=== PATIENT | female | born 1940 | race Caucasian/White ===

== ENCOUNTER 2017-06-29 13:48 | Inpatient (IN) | payer MEDICARE ==
--- NOTE | 2017-06-29 15:14 | RAD ---
CHEST 1 VIEW: Date: 06/29/17 HISTORY: Emergency exam. COMPARISON: None. FINDINGS: Lungs are clear. No pneumothorax or effusion. Cardiac silhouette and mediastinal contours within norm al limits. IMPRESSION: No acute intrathoracic abnormality. POS: [facility]
[2017-06-29 15:45] LABS: Bacteria/HPF None Seen HPF (None Seen); Bilirubin Negative (Negative); Blood, Urine Trace (Negative); Clarity CLEAR (Clear); Glucose, Urine (Dipstick) Negative (Negative); Hyaline Casts/LPF 4-6 HYALINE CAST LPF (0-3 Hyaline); Leukocyte Small (Negative); Nitrite Negative (Negative); Pathc Cast-AUWi Flag 1.21 (0-2.49); Protein, Urine (Dipstick) 100 mg/dL (Neg-Trace); Specific Gravity, Urine 1.025 (1.002-1.036); Squamous Epithelial None Seen HPF (0-3); Urobilinogen 0.2 mg/dL (0.2-1.0); pH, Urine 5.5 (5.0-9.0)
[2017-06-29 15:46] LABS: #Basophils 0.1 thou/uL (0.0-0.2); #Lymphocytes 1.8 thou/uL (1.20-3.40); #Monocytes 0.6 thou/uL (0.11-0.59); #Neutrophils 6.8 thou/uL (1.40-6.50); %Basophils 0.7 % (0.0-1.0); %Eosinophils 0.5 % (0.0-10.0); %Lymphocytes 19.2 % (21.0-51.0); %Monocytes 6.6 % (0.0-10.0); Hemoglobin 14.3 g/dL (12.0-16.0); Mean Corpuscular HGB CONC 34.2 g/dL (32.0-36.0); Mean Corpuscular Hemoglobin 31.7 pg (27.0-31.0); Mean Corpuscular Volume 92.5 fl (81.0-99.0); Platelet Count 206 thou/uL (130-400); RBC Distribution Width 12.6 % (11.5-14.5); Red Blood Cell (RBC) Count 4.52 mill/uL (4.20-5.40); White Blood Cell (WBC) Count 9.3 thou/uL (4.8-10.8)
[2017-06-29 15:51] LABS: Prothrombin Time 13.1 SEC (12.0-14.7)
[2017-06-29 16:07] LABS: ALT (SGPT) 27 U/L (8-55); AST (SGOT) 21 U/L (5-34); Albumin 4.3 g/dL (3.4-4.8); Alkaline Phosphatase 53 U/L (40-150); Anion Gap 15 mmol/L (10-20); BUN (Urea Nitrogen) 20 mg/dL (9.8-20.1); Bilirubin, Total 0.6 mg/dL (0.2-1.2); CK (CPK) 80 U/L (29-168); Calc. Creatinine Clearance 0 mL/min (70-130); Carbon Dioxide 23 mmol/L (23-31); Chloride 107 mmol/L (98-107); Estimated GFR-MDRD 58; Globulin 3.3 g/dL (2.4-3.5); Glucose 115 mg/dL (83-110); Magnesium 1.8 mg/dL (1.6-2.6); Protein, Total 7.6 g/dL (6.0-8.3); Sodium 141 mmol/L (136-145)
[2017-06-29 16:12] LABS: CKMB 1.3 ng/mL (0-6.6); Troponin I 0.036 ng/mL (< 0.028)
--- NOTE | 2017-06-29 16:34 | CT ---
CT BRAIN WITHOUT CONTRAST: Date: 06/29/17 HISTORY: Altered mental status. COMPARISON: None. FINDINGS: Moderate periventricular and deep white matter microvascular ischemic changes. Complete opacification left sphenoid sinus and right maxillary sinus with osteitis. No acute territorial infarct or hemorrhage. No midline shift or mass effect. Calvarium is intact. Orb its are unremarkable. IMPRESSION: 1. No acute intracranial abnormality. 2. Severe right maxillary and left sphenoid sinusitis. POS: [facility]
[2017-06-29] MEDS ORDERED: Amoxicillin/Potassium Clav 250 MG TAB ONE (17:10)
[2017-06-29 20:15] LABS: Troponin I 0.039 ng/mL (< 0.028)
[2017-06-29] MEDS ORDERED: Dextrose 5% in Water 1,000 ML IV PRN (21:32)
[2017-06-29] MEDS ORDERED: HumaLOG 300 UNITS/3 ML VIAL SC PRN ×2 (21:32)
[2017-06-29] MEDS ORDERED: Dextrose 50% Abboject 50 ML SYRINGE SLOW IVP PRN (21:32)
[2017-06-29] MEDS ORDERED: metFORMIN 500 MG TAB PO SCH (22:00)
[2017-06-29] MEDS ORDERED: traZODone HCl 50 MG TAB PO SCH (22:00)
[2017-06-29] MEDS ORDERED: Lisinopril 20 MG TAB PO SCH (22:00)
[2017-06-29] MEDS ORDERED: PARoxetine 20 MG TAB PO SCH (22:00)
[2017-06-29] MEDS ORDERED: Loratadine 10 MG TAB PO SCH (22:00)
[2017-06-29] MEDS ORDERED: Atorvastatin Calcium 40 MG TAB PO SCH (22:00)
[2017-06-29] MEDS ORDERED: Propranolol HCl LA 60 MG CAP PO SCH (22:00)
[2017-06-29] MEDS ORDERED: Fenofibrate Nanocrystallized 145 MG TAB PO SCH (22:00)
[2017-06-29 22:08] LABS: Troponin I 0.043 ng/mL (< 0.028)
[2017-06-29 22:45] VITALS: BMI 18.6
[2017-06-29] MEDS: Sodium Chloride 0.9% 1,000 ML IV SCH (22:46)
--- NOTE | 2017-06-30 00:35 | HP-2 ---
DATE OF ADMISSION: 06/29/2017 CODE STATUS: FULL. PRIMARY CARE PHYSICIAN: Dr. Bueno. ATTENDING: Dr. Jayde Webb. RESIDENT: Dr. Carito Walker. HISTORIAN: Patient. CHIEF COMPLAINT: Flu-like symptoms, altered mentation, generalized weakness, chest pain. HISTORY OF PRESENT ILLNESS: This is a 77-year-old female who presents with a several week history of flu-like symptoms. She was treated for the flu on 06/17 with Tamiflu. She reports that since that time she has still had continued symptoms of nausea, vomiting, diarrhea as well as body aches. She had an episode of intermittent transient chest pain in the ER, that felt like pressure. She has not ever had a stress test or been diagnosed with CAD. Her daughter also reports that over the past 2 months, she has had worsening confusion, personality changes and altered mentation in addition to overall generalized weakness and deconditioning that was worsened by her flu-like illness. In the ER, she received aspirin 324 mg, Augmentin 500 mg. PAST MEDICAL HISTORY: 1. Hypertension. 2. Depression. 3. Hyperlipidemia. 4. Diabetes mellitus type 2. 5. Tobacco abuse. 6. Vitamin D deficiency. PAST SURGICAL HISTORY: 1. Tonsillectomy. 2. Hysterectomy. 3. Laminectomy. ALLERGIES: CIPROFLOXACIN. MEDICATIONS: 1. Metformin 500 mg extended release. 2. Vitamin D 2000 IU. 3. Loratadine 10 mg daily. 4. Fenofibrate 145 mg. 5. Paroxetine 10 mg daily. 6. Propranolol extended release 120 mg daily. 7. Atorvastatin 40 mg daily. 8. Lisinopril 20 mg daily. 9. Trazodone 50 mg at night. FAMILY HISTORY: Noncontributory. SOCIAL HISTORY: History of smoking. Denies alcohol or drug use. REVIEW OF SYSTEMS: General: Denies fevers, chills. HEENT: Endorses nasal congestion. Respiratory: Denies cough. Endorses congestion. Cardiovascular: Endorses chest pressure. Denies palpitations or edema. GI: Endorses nausea , vomiting, and diarrhea. Genitourinary: Denies incontinence, dysuria. Musculoskeletal: Denies pain or tenderness. Neurologic: Denies weakness, numbness. Psychiatric: Denies anxiety, depression. Skin: Denies rashes or lesions. PHYSICAL EXAMINATION: VITAL SIGNS: Blood pressure 157-185/61-87, pulse 60 to 65, respiratory rate 16 to 18, T-max 98.7, pulse ox 97% on room air, current weight 50 kilograms. GENERAL: Alert and oriented x2(person and place), no apparent distress. Well- nourished, thin, somewhat appropriately interactive. HEENT: PERRLA, EOMI. Nasal mucosa and oropharynx within normal limits. NECK: Supple, no lymphadenopathy, no thyromegaly. CARDIOVASCULAR: Regular rate and rhythm. No murmurs, rubs, or gallops, 2+ pedal pulses. RESPIRATORY: Normal effort, no retractions, clear to auscultation bilaterally. SKIN: Warm and dry. ABDOMEN: Soft, nontender to palpation. Bowel sounds in all 4 quadrants. No mass or distention. EXTREMITIES: No clubbing, cyanosis, or edema. MUSCULOSKELETAL: Structure within normal limits, although thin, decreased tone. Strength 4/5 in upper and lower extremities. Global weakness. NEUROLOGIC: No focal deficits. Cranial nerves II-XII intact. GCS 15. PSYCHIATRIC: Appropriate. LABORATORY DATA: CBC: 9.3, 14.3, 41.8, 208. CMP: 141, 4.0, 107, 20.94, 115. AST, ALT, alkaline phosphatase 21, 27, 53. Magnesium 1.8, PT 13.1, INR 1. Calcium, total protein, albumin, 10, 7.6, 4.3. Total bilirubin 0.6. CK-MB 1.3. Troponin 0.036. TSH 2.96. UA positive for protein 100, leukocyte esterase small, white blood cells 4-6, red blood cells 4-6, otherwise negative. EKG: Normal sinus rhythm. IMAGING: CT head negative for acute intracranial bleed or process. ASSESSMENT AND PLAN: This is a 77-year-old female with a recent flu-like illness, admitted for encephalopathy, deconditioning, and indeterminate troponins. 1. Encephalopathy, not otherwise specialized. CT of the head showed no acute intracranial bleed. We will order an MRI to rule out a mass or lesion. This may be a new onset of dementia such as Pick's disease like picture. 2. Deconditioning. This is likely due to her recent flu-like illness. We will order PT, OT for evaluation and also place the patient on maintenance fluids of normal saline at 90 mL per hour. 3. Indeterminate trops, patient when we saw the patient, she was not complaining of any chest pain or pressure. There was some history of transient chest pain upon initial evaluation, and so we will trend her troponins. Chest pain picture is atypical. She had a heart score. However, she had a heart score of 5 and because of her age and past medical history, we will order a pharmacological stress test in the morning and make the patient n.p.o. at midnight. DISPOSITION LENGTH OF HOSPITAL STAY: 2 days. Symptomatic medication will be provided. History and physical exam as well as management discussed with Dr. Tracey Guerrero. BETY
[2017-06-30 01:07] LABS: Troponin I 0.038 ng/mL (< 0.028)
[2017-06-30 05:15] LABS: Hemoglobin A1c 7.2 % (4.0-6.0)
[2017-06-30 05:26] LABS: Anion Gap 12 mmol/L (10-20); BUN (Urea Nitrogen) 19 mg/dL (9.8-20.1); Calc. Creatinine Clearance 42 mL/min (70-130); Calcium 9.6 mg/dL (7.8-10.44); Carbon Dioxide 25 mmol/L (23-31); Cardiac Risk 4.9 (Less than 4.5); Chloride 108 mmol/L (98-107); Cholesterol 158 mg/dl (< 200 Desired); Estimated GFR-MDRD 62; Glucose 132 mg/dL (83-110); HDL Cholesterol 32 mg/dL (>60 Neg Risk); LDL Cholesterol, Calculated 69 mg/dL; Potassium 3.6 mmol/L (3.5-5.1); Sodium 141 mmol/L (136-145); Triglycerides 283 mg/dL (Less than 150)
[2017-06-30 06:00] LABS: Band 1 % (5-11); Eosinophils 4 % (0-10); Hemoglobin 12.8 g/dL (12.0-16.0); Lymphocytes 16 % (21-51); MDiff Complete? YES; Mean Corpuscular HGB CONC 34.1 g/dL (32.0-36.0); Mean Corpuscular Hemoglobin 31.6 pg (27.0-31.0); Mean Corpuscular Volume 92.6 fl (81.0-99.0); Mean Platelet Volume 8.4 fL (7.4-10.4); Monocytes 3 % (0-10); Neutrophil 76 % (42-75); PLT Morphology Comment Appears Adequate; Platelet Count 174 thou/uL (130-400); RBC Distribution Width 12.5 % (11.5-14.5); RBC Morphology Normal; Red Blood Cell (RBC) Count 4.05 mill/uL (4.20-5.40); White Blood Cell (WBC) Count 7.8 thou/uL (4.8-10.8)
--- NOTE | 2017-06-30 08:24 | PDOC.FM ---
- Subjective Subjective: Patient alert and awake this AM. She was alert and oriented to person and place , but not to time. She states that she lives at home alone and is able to perform ADL's without any assistance. Patient actually lives at home with . She has poor insight into current illness and memory loss. Patient was very pleasant this AM and was agreeable to an MRI and stress test after it was carefully explained. - Objective MAR Reviewed: Yes Vital Signs & Weight: Vital Signs (12 hours) Temp Pulse Resp BP Pulse Ox 06/30/17 07:20 97.9 F 56 L 18 06/30/17 04:00 97.9 F 56 L 18 169/67 H 94 L 06/30/17 00:08 98.5 F 66 15 06/29/17 23:37 98.5 F 66 15 142/70 H 94 L 06/29/17 21:24 95 I&O: 06/29/17 06/30/17 07/01/17 06:59 06:59 06:59 Intake Total 629 242 Balance 629 242 Result Diagrams: 06/30/17 04:28 06/30/17 04:28 EKG Reviewed by me: Yes Radiology Reviewed by me: Yes <Saritha Gorman - Last Filed: 06/30/17 08:22> - Objective Vital Signs & Weight: Vital Signs (12 hours) Temp Pulse Resp BP Pulse Ox 06/30/17 11:13 95 06/30/17 07:32 97.4 F L 54 L 18 165/73 H 95 06/30/17 07:20 97.9 F 56 L 18 06/30/17 04:00 97.9 F 56 L 18 169/67 H 94 L Weight Admit Weight 50.848 kg Weight 50.848 kg I&O: 06/29/17 06/30/17 07/01/17 06:59 06:59 06:59 Intake Total 629 242 Balance 629 242 Result Diagrams: 06/30/17 04:28 06/30/17 04:28 <José Miguel Julian - Last Filed: 06/30/17 12:21> Phys Exam - Physical Examination Constitutional: NAD HEENT: PERRLA, moist MMs Neck: supple Respiratory: no wheezing, no rales, no rhonchi, clear to auscultation bilateral Cardiovascular: RRR, no significant murmur Gastrointestinal: soft, non-tender, no distention, positive bowel sounds Musculoskeletal: no edema Neurological: non-focal, moves all 4 limbs Deviation from normal: Alert and oriented to person and place Skin: no rash <Saritha Gorman - Last Filed: 06/30/17 08:22> Dx/Plan (1) Encephalopathy acute Code(s): G93.40 - ENCEPHALOPATHY, UNSPECIFIED Status: Acute (2) Physical deconditioning Code(s): R53.81 - OTHER MALAISE Status: Acute (3) Elevated troponin Code(s): R74.8 - ABNORMAL LEVELS OF OTHER SERUM ENZYMES Status: Acute (4) Sinusitis Code(s): J32.9 - CHRONIC SINUSITIS, UNSPECIFIED Status: Acute (5) Influenza Code(s): J11.1 - FLU DUE TO UNIDENTIFIED INFLUENZA VIRUS W OTH RESP MANIFEST Status: Resolved (6) Diabetes mellitus type 2 in nonobese Code(s): E11.9 - TYPE 2 DIABETES MELLITUS WITHOUT COMPLICATIONS Status: Chronic (7) HTN (hypertension) Code(s): I10 - ESSENTIAL (PRIMARY) HYPERTENSION Status: Chronic QualifierTitle: Hypertension type: essential hypertension Qualified Code( s): I10 - Essential (primary) hypertension (8) HLD (hyperlipidemia) Code(s): E78.5 - HYPERLIPIDEMIA, UNSPECIFIED Status: Chronic QualifierTitle: Hyperlipidemia type: unspecified Qualified Code(s): E78.5 - Hyperlipidemia, unspecified (9) Tobacco abuse Code(s): Z72.0 - TOBACCO USE Status: Chronic (10) Depression Code(s): F32.9 - MAJOR DEPRESSIVE DISORDER, SINGLE EPISODE, UNSPECIFIED Status : Chronic (11) Anxiety Code(s): F41.9 - ANXIETY DISORDER, UNSPECIFIED Status: Chronic - Plan Plan: 1. Ecephalopathy - Suspect underlying dementia worsened by recent influenza infection - CT brain negative for any acute intracranial abnormalities and only minor chronic changes - MRI of brain pending to rule out mass/lesion - Patient alert and oriented to person and place, but not to time - s/p treatment for influenza - Continue orienting patient 2. Deconditioning - Likely 2/2 to recent influenza illness - Would benefit from placement in SNF 3. Indeterminate troponins - Patient denies CP currently, but ER doc reported she had chest pressure on admission - Stress test pending - ASA 4. Sinusitis - Asymptomatic - Detected on CT of brain - Treatment with Augmentin has been initiated 5. Recent history of influenza - S/p treatment with Tamiflu 6. DM type II - Continue home medications - Accuchecks 7. HTN - Continue home medications 8. HLD - Continue home medications 9. Tobacco abuse - Pathology Laboratory Technologist on cessation - Nicotine patch PRN 10. Depression - Continue home medications <Saritha Gorman - Last Filed: 06/30/17 08:22> Attending Addendum - Attending Addendum I personally evaluated the patient and discussed the management with Dr. Gorman. I agree with the History, Examination, Assessment and Plan documented above with any addition or exceptions noted below. Patient admitted for what sounds more like a chronic change in mentation rather than an acute encephalopathy. She is having MRI this morning to ensure no intracranial disease that would the cause of her symptoms. She also had mention of chest pain in the ER and stress testing has been ordered. She lives at home with family. No cause found for longer term change in mentation, likely dementia. Awaiting results of MRI and stress testing and will then discuss with family possible d/c home with further outpatient workup of her change in mentation. <José Miguel Julian - Last Filed: 06/30/17 12:21>
[2017-06-30] MEDS ORDERED: Lorazepam 2 MG/ML VIAL SLOW IVP SCH (10:45)
[2017-06-30] MEDS: Amoxicillin/Potassium Clav 500 MG TAB PO SCH ×2 (11:01→22:06)
[2017-06-30] MEDS: Lisinopril 20 MG TAB PO SCH ×2 (11:02→21:57)
[2017-06-30] MEDS: Aspirin 81 mg Enteric Coated Tablet PO SCH (11:02)
[2017-06-30] MEDS: Enoxaparin Sodium 40 MG/0.4 ML SYRINGE SC SCH (11:02)
--- NOTE | 2017-06-30 12:26 | NM ---
CARDIAC SILHOUETTE: History A 7-year-old female with chest pain, hypertension, diabetes mellitus, dyslipidemia, and smoker. TECHNIQUE: A myocardial perfusion scan was performed using the single-isotope 1-day protocol with Technetium 99m sestamibi. 11 mCi were injected intravenously for the rest exam followed by 30 mCi for the stress s tudy. Pharmacologic stress with adenosine was monitored and interpreted by Dr. Ba. FINDINGS: Homogeneous tracer distribution is seen in the myocardial segments on stress and rest images without fixed or reversible defects. GATED SPECT LVEF: 81%. WALL MOTION EXAM: Normal. IMPRESSION: Normal myocardial perfusion scan. POS: [facility]
--- NOTE | 2017-06-30 13:38 | MRI ---
BRAIN MRI WITH AND WITHOUT CONTRAST: INDICATIONS: Altered mental status. COMPARISON: Reference made to brain CT from the previous day. FINDINGS: There is a age related cerebral atrophy with compensatory dilatation of the ventricular system. Mode rate chronic microvascular ischemic disease is present within the cerebral white matter and involving the kenia. There is no acute territorial infarction, mass effect, or midline shift. There is a focu s of enhancement along the superior aspect of the right orbit, projecting posteriorly, with a dural b ase, measuring approximately 15 mm transverse x 9 mm AP x 6 mm craniocaudal. A prominent degree of patient motion limits evaluation. Redemonstration of prominent paranasal sinus opacification, which predominantly involves the right maxillary sinus and the left major sphenoid ai r cells. There is a nonspecific punctate focus of restricted diffusion localizing to the left tempor oparietal calvarium. IMPRESSION: 1. No acute intracranial abnormalities. 2. Moderate chronic microvascular ischemic disease. 3. Right supraorbital meningioma. 4. Small area of restricted diffusion involving the left temporoparietal calvarium. This is nonspec ific. This may be further assessed with a dedicated whole body bone scan, in order to exclude a diff use osseous process. POS: [facility]
[2017-06-30] MEDS: Sodium Chloride 0.9% 1,000 ML IV SCH (16:21)
[2017-06-30] MEDS ORDERED: ADENOSINE 60 MG/20 ML VIAL ONE (16:44)
[2017-06-30] MEDS: traZODone HCl 50 MG TAB PO SCH (21:58)
[2017-06-30] MEDS: Fenofibrate Nanocrystallized 145 MG TAB PO SCH (21:59)
[2017-06-30] MEDS: Atorvastatin Calcium 40 MG TAB PO SCH (21:59)
[2017-06-30] MEDS: Loratadine 10 MG TAB PO SCH (21:59)
[2017-06-30] MEDS: PARoxetine 20 MG TAB PO SCH (21:59)
[2017-06-30] MEDS: metFORMIN 500 MG TAB PO SCH (22:01)
[2017-06-30] MEDS: Propranolol HCl LA 60 MG CAP PO SCH (22:05)
--- NOTE | 2017-07-01 00:41 | CON ---
DATE OF CONSULTATION: 06/30/2017 ATTENDING PHYSICIAN: Dr. Jeovanny Loja. HISTORY OF PRESENT ILLNESS: The patient is a 77-year-old female with a past medical history of hypertension, hyperlipidemia, coronary artery disease , type 2 diabetes, depression, dementia, who presented to the emergency department on 06/29/2017 for generalized weakness and flu-like symptoms. She was diagnosed and treated for the flu on 06/17/2017 after she reports, since that time she has continued to have generalized weakness, body aches, nausea, vomiting, and diarrhea. Her family is also concerned about progressive memory decline that she has been having over the past few months and intermittent confusion. She was evaluated with a noncontrast CT of the head, which was negative for any acute changes. MRI of the brain with and without contrast was notable for a small right supraorbital meningioma. I have seen the patient at bedside. She is alert and oriented to person and place, but not to time. She is slightly congenital in her conversation. Her pupils are equal and reactive. Her extraocular movements are intact. She has normal cranial nerve exam. No focal motor weakness appreciated on my exam. PAST MEDICAL HISTORY: Hypertension, hyperlipidemia, type 2 diabetes, depression , dementia. PAST SURGICAL HISTORY: Tonsillectomy, hysterectomy, laminectomy. ALLERGIES: The patient is allergic to CIPROFLOXACIN. FAMILY HISTORY: Noncontributory. SOCIAL HISTORY: Patient is . She lives at home with her . She is a smoker. She denies drug or alcohol use. REVIEW OF SYSTEMS: Per HPI. PHYSICAL EXAMINATION: CONSTITUTIONAL: She is in no acute distress, sitting comfortably in the bed, enjoying her dinner. HEENT: Normocephalic, atraumatic. EYES: PERRLA. Extraocular movements intact. Sclerae are white. ENT: OP is clear. Oral mucosa are pink intact and moist. She has a normal voice. NECK: Nontender to palpation. Free active range of motion, no meningismus or nuchal rigidity. CARDIOVASCULAR: Regular rate and rhythm. LUNGS: Patient is breathing comfortably. She has symmetric chest expansion. No evidence of dyspnea. MUSCULOSKELETAL: She has good muscle tone to bilateral upper and lower extremities, free active range of motion of all extremities, 5/5 strength throughout. NEURO: Patient is alert and oriented to person, place, but not to time. No focal motor weakness is appreciated. She has normal cranial nerve exam. ASSESSMENT: Right orbital lesion consistent with meningioma. PLAN: Meningioma on MRI is unlikely to be contributing to patient's worsening cognitive decline. This is likely an incidental finding. We will be happy to follow with the patient on an outpatient basis. No acute neurosurgical intervention is indicated at this time. Please reach out to Neurosurgery Service for additional questions or concerns. BETY
[2017-07-01] MEDS: Sodium Chloride 0.9% 1,000 ML IV SCH (03:41)
[2017-07-01 05:25] LABS: Anion Gap 13 mmol/L (10-20); BUN (Urea Nitrogen) 19 mg/dL (9.8-20.1); Band 3 % (5-11); Calc. Creatinine Clearance 43 mL/min (70-130); Calcium 8.9 mg/dL (7.8-10.44); Carbon Dioxide 22 mmol/L (23-31); Chloride 108 mmol/L (98-107); Eosinophils 3 % (0-10); Estimated GFR-MDRD 61; Glucose 114 mg/dL (83-110); Hemoglobin 12.5 g/dL (12.0-16.0); Lymphocytes 35 % (21-51); MDiff Complete? YES; Mean Corpuscular HGB CONC 34.7 g/dL (32.0-36.0); Mean Corpuscular Hemoglobin 31.8 pg (27.0-31.0); Mean Corpuscular Volume 91.7 fl (81.0-99.0); Mean Platelet Volume 8.1 fL (7.4-10.4); Monocytes 4 % (0-10); Neutrophil 54 % (42-75); PLT Morphology Comment Appears Adequate; Platelet Count 168 thou/uL (130-400); Potassium 3.8 mmol/L (3.5-5.1); RBC Distribution Width 12.3 % (11.5-14.5); Red Blood Cell (RBC) Count 3.94 mill/uL (4.20-5.40); Sodium 139 mmol/L (136-145); White Blood Cell (WBC) Count 7.5 thou/uL (4.8-10.8)
--- NOTE | 2017-07-01 08:18 | PDOC.FM ---
- Subjective Subjective: Patient doing well this AM. Alert and oriented x2, to person and time, but not to place this AM. She thought she was in [place], [place]. Patient pleasant during encounter today. Nurses did report that she was agitated last night. She was attempted to get up from bed on several occasions without assistance. She was also yelling at the nurses. Eventually, she calmed down. Likely she was sundowning. Will discuss HH with PT with patient's daughter vs. SNF from outpatient setting. - Objective MAR Reviewed: Yes Vital Signs & Weight: Vital Signs (12 hours) Temp Pulse Resp BP BP Pulse Ox 07/01/17 03:42 98.5 F 63 16 159/70 H 92 L 07/01/17 00:00 61 16 156/70 H 06/30/17 21:57 174/74 H Weight Admit Weight 50.848 kg Weight 51.982 kg I&O: 06/30/17 07/01/17 07/02/17 06:59 06:59 06:59 Intake Total 629 1562 Output Total 500 Balance 629 1062 Result Diagrams: 07/01/17 04:44 07/01/17 04:44 EKG Reviewed by me: Yes Radiology Reviewed by me: Yes <Saritha Gorman - Last Filed: 07/01/17 08:20> - Objective Vital Signs & Weight: Vital Signs (12 hours) Temp Pulse Resp BP Pulse Ox 07/01/17 08:00 97.8 F 62 16 07/01/17 07:28 97.8 F 62 16 179/81 H 93 L 07/01/17 03:42 98.5 F 63 16 159/70 H 92 L Weight Admit Weight 50.848 kg Weight 51.982 kg I&O: 06/30/17 07/01/17 07/02/17 06:59 06:59 06:59 Intake Total 629 1562 Output Total 500 250 Balance 629 1062 -250 Result Diagrams: 07/01/17 04:44 07/01/17 04:44 <José Miguel Julian - Last Filed: 07/01/17 12:17> Phys Exam - Physical Examination Constitutional: NAD HEENT: moist MMs Neck: supple Respiratory: no wheezing, no rales, no rhonchi, clear to auscultation bilateral Cardiovascular: RRR Gastrointestinal: soft, no distention Musculoskeletal: no edema Neurological: non-focal, moves all 4 limbs Deviation from normal: Alert and oriented to time and person, but not to place Skin: no rash, cap refill <2 seconds <VitaSaritha - Last Filed: 07/01/17 08:20> Dx/Plan (1) Encephalopathy acute Code(s): G93.40 - ENCEPHALOPATHY, UNSPECIFIED Status: Acute (2) Physical deconditioning Code(s): R53.81 - OTHER MALAISE Status: Acute (3) Elevated troponin Code(s): R74.8 - ABNORMAL LEVELS OF OTHER SERUM ENZYMES Status: Acute (4) Sinusitis Code(s): J32.9 - CHRONIC SINUSITIS, UNSPECIFIED Status: Acute (5) Influenza Code(s): J11.1 - FLU DUE TO UNIDENTIFIED INFLUENZA VIRUS W OTH RESP MANIFEST Status: Resolved (6) Diabetes mellitus type 2 in nonobese Code(s): E11.9 - TYPE 2 DIABETES MELLITUS WITHOUT COMPLICATIONS Status: Chronic (7) HTN (hypertension) Code(s): I10 - ESSENTIAL (PRIMARY) HYPERTENSION Status: Chronic QualifierTitle: Hypertension type: essential hypertension Qualified Code( s): I10 - Essential (primary) hypertension (8) HLD (hyperlipidemia) Code(s): E78.5 - HYPERLIPIDEMIA, UNSPECIFIED Status: Chronic QualifierTitle: Hyperlipidemia type: unspecified Qualified Code(s): E78.5 - Hyperlipidemia, unspecified (9) Tobacco abuse Code(s): Z72.0 - TOBACCO USE Status: Chronic (10) Depression Code(s): F32.9 - MAJOR DEPRESSIVE DISORDER, SINGLE EPISODE, UNSPECIFIED Status : Chronic (11) Anxiety Code(s): F41.9 - ANXIETY DISORDER, UNSPECIFIED Status: Chronic - Plan Plan: 1. 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 Recommend follow up as outpatient - Patient alert and oriented to person and time today, but not to place - s/p treatment for influenza - Continue orienting patient - Discuss HH with PT vs. SNF from outpatient setting - Recommend further workup for dementia (likely AD) as outpatient 2. Deconditioning - Likely 2/2 to recent influenza illness - Would benefit from placement in SNF vs. HH with PT 3. Indeterminate troponins - Patient denies CP currently, but ER doc reported she had chest pressure on admission - Stress test negative - ASA 4. Sinusitis - Asymptomatic - Detected on CT of brain - Treatment with Augmentin has been initiated 5. Recent history of influenza - S/p treatment with Tamiflu 6. DM type II - Continue home medications - Accuchecks 7. HTN - Continue home medications 8. HLD - Continue home medications 9. Tobacco abuse - Tray Worker on cessation - Nicotine patch PRN 10. Depression - Continue home medications <Saritha Gorman - Last Filed: 07/01/17 08:20> Attending Addendum - Attending Addendum I personally evaluated the patient and discussed the management with Dr. Gorman. I agree with the History, Examination, Assessment and Plan documented above with any addition or exceptions noted below. Patient doing somewhat better today. She is A&Ox2. Vitals are stable. We are in process of arranging for dispo to either home with PT, or to SNF. I feel she would be a good SNF candidate and would help her do better in the long run. NSGY recommends outpatient following of her meningioma, and it is likely not related to her mentation changes. <José Miguel Julian - Last Filed: 07/01/17 12:17>
[2017-07-01] MEDS: Amoxicillin/Potassium Clav 500 MG TAB PO SCH ×2 (09:23→21:46)
[2017-07-01] MEDS: Lisinopril 20 MG TAB PO SCH ×2 (09:23→21:48)
[2017-07-01] MEDS: Aspirin 81 mg Enteric Coated Tablet PO SCH (09:24)
[2017-07-01] MEDS: Enoxaparin Sodium 40 MG/0.4 ML SYRINGE SC SCH (09:24)
[2017-07-01] MEDS ORDERED: hydrALAZINE 20 MG/ML VIAL SLOW IVP PRN (13:36)
[2017-07-01] MEDS ORDERED: NIFEdipine XL 30 MG TAB PO SCH (15:45)
[2017-07-01] MEDS ORDERED: Acetaminophen 325 MG TAB PO PRN (18:06)
[2017-07-01] MEDS ORDERED: Ondansetron ODT 4 MG TAB PO PRN (18:06)
[2017-07-01] MEDS: Propranolol HCl LA 60 MG CAP PO SCH (21:47)
[2017-07-01] MEDS: Fenofibrate Nanocrystallized 145 MG TAB PO SCH (21:48)
[2017-07-01] MEDS: PARoxetine 20 MG TAB PO SCH (21:49)
[2017-07-01] MEDS: metFORMIN 500 MG TAB PO SCH (21:49)
[2017-07-01] MEDS: Loratadine 10 MG TAB PO SCH (21:50)
[2017-07-01] MEDS: traZODone HCl 50 MG TAB PO SCH (21:50)
[2017-07-01] MEDS: Atorvastatin Calcium 40 MG TAB PO SCH (21:51)
--- NOTE | 2017-07-02 08:51 | PDOC.FM ---
- Subjective Subjective: Patient doing well this AM. No significant overnight events. No complaints of pain. Alert and oriented to person and time. Daughter not by bedside this morning. Referrals have been placed for [facility] rehab and SNF's. - Objective MAR Reviewed: Yes Vital Signs & Weight: Vital Signs (12 hours) Temp Pulse Resp BP BP Pulse Ox 07/02/17 07:40 98.0 F 68 18 94 L 07/02/17 04:00 98.0 F 68 18 141/62 H 93 L 07/01/17 21:48 153/70 H Weight Admit Weight 50.848 kg Weight 51.982 kg I&O: 07/01/17 07/02/17 07/03/17 06:59 06:59 06:59 Intake Total 1562 360 Output Total 500 650 Balance 1062 -290 Result Diagrams: 07/01/17 04:44 07/01/17 04:44 EKG Reviewed by me: Yes Radiology Reviewed by me: Yes <Saritha Gorman - Last Filed: 07/02/17 08:48> - Objective Vital Signs & Weight: Vital Signs (12 hours) Temp Pulse Resp BP BP Pulse Ox 07/02/17 11:54 98.1 F 59 L 20 166/72 H 92 L 07/02/17 09:38 166/78 H 07/02/17 09:37 63 166/78 H 07/02/17 07:45 98.5 F 63 20 166/78 H 92 L 07/02/17 07:40 98.0 F 68 18 94 L 07/02/17 04:00 98.0 F 68 18 141/62 H 93 L Weight Admit Weight 50.848 kg Weight 51.982 kg I&O: 07/01/17 07/02/17 07/03/17 06:59 06:59 06:59 Intake Total 1562 360 300 Output Total 500 650 Balance 1062 -290 300 Result Diagrams: 07/01/17 04:44 07/01/17 04:44 <José Miguel Julian - Last Filed: 07/02/17 12:08> Phys Exam - Physical Examination Constitutional: NAD HEENT: moist MMs Neck: supple Respiratory: clear to auscultation bilateral Cardiovascular: RRR, no significant murmur Gastrointestinal: soft, positive bowel sounds Musculoskeletal: no edema Neurological: non-focal, moves all 4 limbs Deviation from normal: Alert and oriented to person and time, but not to place Skin: no rash, cap refill <2 seconds <VitaSaritha - Last Filed: 07/02/17 08:48> Dx/Plan (1) Encephalopathy acute Code(s): G93.40 - ENCEPHALOPATHY, UNSPECIFIED Status: Acute (2) Physical deconditioning Code(s): R53.81 - OTHER MALAISE Status: Acute (3) Elevated troponin Code(s): R74.8 - ABNORMAL LEVELS OF OTHER SERUM ENZYMES Status: Acute (4) Sinusitis Code(s): J32.9 - CHRONIC SINUSITIS, UNSPECIFIED Status: Acute (5) Influenza Code(s): J11.1 - FLU DUE TO UNIDENTIFIED INFLUENZA VIRUS W OTH RESP MANIFEST Status: Resolved (6) Diabetes mellitus type 2 in nonobese Code(s): E11.9 - TYPE 2 DIABETES MELLITUS WITHOUT COMPLICATIONS Status: Chronic (7) HTN (hypertension) Code(s): I10 - ESSENTIAL (PRIMARY) HYPERTENSION Status: Chronic QualifierTitle: Hypertension type: essential hypertension Qualified Code( s): I10 - Essential (primary) hypertension (8) HLD (hyperlipidemia) Code(s): E78.5 - HYPERLIPIDEMIA, UNSPECIFIED Status: Chronic QualifierTitle: Hyperlipidemia type: unspecified Qualified Code(s): E78.5 - Hyperlipidemia, unspecified (9) Tobacco abuse Code(s): Z72.0 - TOBACCO USE Status: Chronic (10) Depression Code(s): F32.9 - MAJOR DEPRESSIVE DISORDER, SINGLE EPISODE, UNSPECIFIED Status : Chronic (11) Anxiety Code(s): F41.9 - ANXIETY DISORDER, UNSPECIFIED Status: Chronic - Plan Plan: 1. 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 Recommend follow up as outpatient - Patient alert and oriented to person and time today, but not to place - s/p treatment for influenza - Continue orienting patient - Referral sent for [facility] - Recommend further workup for dementia (likely AD) as outpatient 2. Deconditioning - Likely 2/2 to recent influenza illness - Would benefit from placement in SNF vs. Inpatient rehab 3. Indeterminate troponins - Patient denies CP currently, but ER doc reported she had chest pressure on admission - Stress test negative - ASA 4. Sinusitis - Asymptomatic - Detected on CT of brain - Treatment with Augmentin has been initiated 5. Recent history of influenza - S/p treatment with Tamiflu 6. DM type II - Continue home medications - Accuchecks 7. HTN - Continue home medications 8. HLD - Continue home medications 9. Tobacco abuse - Anaesthesiologist on cessation - Nicotine patch PRN 10. Depression - Continue home medications Dispo: Awaiting placement at inpatient rehab vs. SNF. Will follow with CM. <Saritha Gorman - Last Filed: 07/02/17 08:48> Attending Addendum - Attending Addendum I personally evaluated the patient and discussed the management with Dr. Gorman. I agree with the History, Examination, Assessment and Plan documented above with any addition or exceptions noted below. Patient doing well. Awaiting possible dispo to inpatient rehab. No NSGY intervention for small meningioma. Vitals stable and mentation stable. <José Miguel Julian - Last Filed: 07/02/17 12:08>
[2017-07-02] MEDS ORDERED: Amlodipine 5 MG TAB PO SCH (09:00)
[2017-07-02] MEDS: Enoxaparin Sodium 40 MG/0.4 ML SYRINGE SC SCH (09:38)
[2017-07-02] MEDS: Amoxicillin/Potassium Clav 500 MG TAB PO SCH (09:38)
[2017-07-02] MEDS: Aspirin 81 mg Enteric Coated Tablet PO SCH (09:38)
[2017-07-02] MEDS: Lisinopril 20 MG TAB PO SCH (09:38)
[2017-07-02 12:06] VITALS: TEMP 98.1
[2017-07-02 14:58] VITALS: BP 166/95
--- NOTE | 2017-07-03 15:17 | DIS-2 ---
DATE OF ADMISSION: 06/29/2017 DATE OF DISCHARGE: 07/02/2017 RESIDENT: Dr. Saritha Gorman. ADMITTING ATTENDING: Jayde Webb M.D. DISCHARGE ATTENDING: Dr. José Miguel Julian. CONSULTS: Neurosurgery. PROCEDURES: 1. Chest x-ray, no acute intrathoracic abnormality. 2. Brain CT, no acute intracranial abnormality. There is some severe right maxillary and left sphenoid sinusitis. 3. Cardiolite stress test negative, ECG normal and myocardial perfusion scan. 4. Brain MRI, shows no acute intracranial abnormalities. There is some moderate chronic microvascular ischemic disease in the right supraorbital meningioma. PRIMARY DIAGNOSES: 1. Encephalopathy, likely secondary to underlying dementia. 2. Deconditioning. 3. Indeterminate troponins. 4. Sinusitis. 5. Recent history of influenza. SECONDARY DIAGNOSES: 1. Diabetes mellitus type 2. 2. Hypertension. 3. Hyperlipidemia. 4. Tobacco abuse. 5. Depression. DISCHARGE MEDICATIONS: 1. Amlodipine 5 mg oral daily. 2. Augmentin 500 mg oral q.12 hours for 7 additional days. 3. Aspirin 81 mg oral daily. 4. Trazodone 12.5 mg oral at bedtime. 5. Clonazepam 0.5 mg oral at bedtime as needed. 6. Paroxetine HCL 10 mg oral at bedtime. 7. Loratadine 10 mg oral at bedtime. 8. Propranolol 120 mg oral at bedtime. 9. Fenofibrate 145 mg oral at bedtime. 10. Vitamin D3 of 2000 units oral twice daily. 11. Metformin 500 mg oral at bedtime. 12. Lisinopril 20 mg oral twice daily. 13. Atorvastatin calcium 40 mg oral at bedtime. DISCONTINUED MEDICATIONS: None. HISTORY OF PRESENT ILLNESS AND HOSPITAL COURSE: This is a 77-year-old female, who presented with several week history of flu-like symptoms. She was treated for the flu on 06/17/2017 with Tamiflu. She reports that since that time she has had continued symptoms of nausea, vomiting, diarrhea as well as body aches. She did have an episode of intermittent transient chest pain in the emergency room that felt like pressure. She has never had a stress test. Her daughter also reports over the past 2 months she has had worsening confusion, personality changes and altered mentation in addition to overall generalized weakness and deconditioning that was worsened by the flu-like illness. In the ER, she was given aspirin 325 mg as well as Augmentin 500 mg for treatment of sinusitis. The patient remained stable throughout the course of her hospital stay. From the time of admission until time of discharge, she was alert and oriented x2, which daughter states is around her baseline. Of note, the daughter mentioned that she has gradually started to forget things and has been getting angry upon forgetting things over the last couple of months. She requires some help with her activities of daily living. She does live at home with her , although when you ask her where she lives, she reports that she lives at home alone. CT of brain was performed and was noted to be negative for any acute changes. She does have some microvascular changes that may be contributing to current symptoms. Due to recent mentation changes an MRI of the brain was performed just to rule out any lesions or tumors that may be contributing. A very small supraorbital meningioma was found. Due to its size is unlikely that it was causing patient's current mental status changes; however. Neurosurgery was consulted for an opinion. [place], the Neurosurgery PA, did see the patient and reviewed the MRI. She agreed that likely this was not contributing to patient's current mental status and agreed that there is probably some underlying dementia. The patient was very pleasant throughout her hospital stay. Various labs were performed to rule out organic causes of altered mental status to include CBC, which was within normal limits. CMP did not elicit any electrolyte changes. Magnesium was noted to be 1.8, which was within normal limits. Vitamin B12 was 302 and TSH was 2.96. Patient's blood glucose levels ranged from 120-170. She did not appear to have a urinary tract infection. Thus, due to the extent of the workup and lack of findings indicative of current mental status changes, it is likely that the patient does have some underlying dementia that is beginning to manifest. This was discussed with the patient's daughter in detail and the patient. It was highly recommended that patient follow up with primary care physician to further discuss this matter. It would be ideal to have a mini mental status exam performed as well to get a baseline for patient's mental status at this current time. Patient's current deconditioning likely exacerbated by the recent flu illness. It is determined that the patient would be better off going to short-term nursing facility or inpatient rehabilitation. This was a recommendation from PT , as well. She regained strength. She was accepted to [facility] [place] for short-term nursing where she will work with PT and OT and continue to recover. Of note, the patient did have a transient episode of chest pain in the emergency department, although she did not complain of chest pain at all. Due to a transient episode of chest pain, a stress test was performed, which did not show any ischemic changes. Troponins did remain in the indeterminate level ranged from 0.036 to 0.043; however, they did continue to downtrend. EKG did not show any evidence of T-wave abnormalities or ST depression or elevation. DISPOSITION: Stable. DISCHARGE INSTRUCTIONS: 1. Location short term nursing facility, [facility] in [place]. 2. Diet: Diabetic diet and heart healthy diet. 3. Activity as tolerated. 4. Followup: The patient is to follow up with her primary care physician, Dr. Bueno at [facility] within 7-14 days of discharge to ensure complete workup of current condition. This was discussed with the patient and her daughter, they are both in understanding and agreeable with the plan. BETY
--- NOTE | 2017-07-04 11:50 | STRESS ---
Acquisition Time: 2017-06-30 09:22:04 Total Exercise Time: 00:04:00 Test Indications: CHEST PAIN Medications: Protocol: ADENOSINE Max HR: 070 BPM 48% of Pred: 143 BPM Max BP: 130/070 mmHG Max Work Load: 1.0 METS RESTING ECG: SINUS BRADYCARDIA AT 59 BPM WITH EARLY R-WAVE TRANSITION SYMPTOMS: NONE NORMAL BP RESPONSE ECTOPY: NONE ECG STRESS: NO SIGNIFICANT CHANGES INTERPRETATION: NEGATIVE ECG/AWAIT NUCLEAR IMAGES FOR DEFINITIVE DIAGNOSIS Confirmed by DR. Dario XIONG ([id number]), film editor supervisor WALESKA ANTOINE ([id number]) on 07/04/2017 11:49:50 AM Referred By: MD Karolyn ARANDA Confirmed By:DR. Dario XIONG
== END 2017-07-02 16:24 | DRG 884 ==
LOC: ERS 13:48 → 2SW 17:30 → OBSVTOIN 20:59
PROVIDERS: ADMIT Family Medicine; ATTEND Family Medicine
PROC: B030ZZZ Magnetic Resonance Imaging (MRI) of Brain (ICD-10-PCS; principal; 2017-06-30)
DX: F03.90 Unspecified dementia, unspecified severity, without behavioral disturbance, psychotic disturbance, mood disturbance, and anxiety (principal); G93.40 Encephalopathy, unspecified; E66.01 Morbid (severe) obesity due to excess calories; J32.9 Chronic sinusitis, unspecified; E11.9 Type 2 diabetes mellitus without complications; D32.0 Benign neoplasm of cerebral meninges; Z68.43 Body mass index [BMI] 50.0-59.9, adult; E78.5 Hyperlipidemia, unspecified; F17.210 Nicotine dependence, cigarettes, uncomplicated; F32.9 Major depressive disorder, single episode, unspecified; I10 Essential (primary) hypertension; I25.10 Atherosclerotic heart disease of native coronary artery without angina pectoris; R74.8 Abnormal levels of other serum enzymes; R07.89 Other chest pain; R53.83 Other fatigue; Z88.1 Allergy status to other antibiotic agents
CPT/HCPCS: 36415; 36416; 70450; 70553; 71045; 78452; 80048; 80053; 80061; 81003; 81015; 82553; 82607; 83036; 83735; 84443; 84484; 85007; 85025; 85027; 85610; 93005; 93017; 94760; A9500; G8978-GP-CK; G8979-GP-CI; G8987-GO-CK; G8988-GO-CI; J0153; J0360; J1650; J2060; Q0162

== ENCOUNTER 2018-01-13 11:09 | Inpatient (IN) | payer MEDICARE ==
[2018-01-13] MEDS ORDERED: Acetaminophen 325 MG/10.15 ML UDCUP ONE (11:59)
[2018-01-13 12:20] LABS: Hemoglobin 13.7 g/dL (12.0-16.0); Mean Corpuscular HGB CONC 34.8 g/dL (32.0-36.0); Mean Corpuscular Hemoglobin 32.2 pg (27.0-31.0); Mean Corpuscular Volume 92.4 fL (78.0-98.0); Mean Platelet Volume 7.8 fL (7.4-10.4); Platelet Count 162 thou/uL (130-400); RBC Distribution Width 12.1 % (11.5-14.5); Red Blood Cell (RBC) Count 4.26 mill/uL (4.20-5.40); White Blood Cell (WBC) Count 10.9 thou/uL (4.8-10.8)
[2018-01-13 12:45] LABS: CKMB 0.7 ng/mL (0-6.6); Troponin I Less than 0.010 ng/mL (< 0.028)
[2018-01-13 12:47] LABS: ALT (SGPT) 30 U/L (8-55); AST (SGOT) 29 U/L (5-34); Albumin 4.2 g/dL (3.4-4.8); Alkaline Phosphatase 55 U/L (40-150); Anion Gap 17 mmol/L (10-20); BUN (Urea Nitrogen) 40 mg/dL (9.8-20.1); Bilirubin, Total 0.8 mg/dL (0.2-1.2); Calc. Creatinine Clearance 0 mL/min (70-130); Calcium 10.5 mg/dL (7.8-10.44); Carbon Dioxide 22 mmol/L (23-31); Chloride 108 mmol/L (98-107); Estimated GFR-MDRD 34; Globulin 3.8 g/dL (2.4-3.5); Glucose 227 mg/dL (83-110); Sodium 143 mmol/L (136-145)
[2018-01-13 12:48] LABS: Bilirubin Negative (Negative); Blood, Urine Negative (Negative); Clarity CLOUDY (Clear); Glucose, Urine (Dipstick) Negative (Negative); Leukocyte Negative (Negative); Nitrite Negative (Negative); Protein, Urine (Dipstick) Trace mg/dL (Neg-Trace); Urobilinogen 0.2 mg/dL (0.2-1.0)
[2018-01-13 12:50] LABS: Band 34 % (5-11); Lymphocytes 5 % (21-51); MDiff Complete? YES; Monocytes 3 % (0-10); Neutrophil 58 % (42-75); PLT Morphology Comment Appears Adequate; RBC Morphology Normal; Vacuoles SLIGHT
--- NOTE | 2018-01-13 13:09 | RAD ---
RADIOGRAPH CHEST 1 VIEW: HISTORY: 77-year-old female with fever and dehydration. FINDINGS: There are no air space densities, pulmonary edema, pneumothorax, or cardiomegaly. The lateral costop hrenic angles are sharp. IMPRESSION: No acute cardiopulmonary findings. kevan POS: RUBEN
[2018-01-13] MEDS ORDERED: cefTRIAXone\\ROCEPHIN 2 GM VIAL ONE (13:15)
[2018-01-13 16:27] LABS: Lactic Acid 4.1 mmol/L (0.5-2.2)
[2018-01-13 16:34] VITALS: BMI 18.1
[2018-01-13] MEDS: Sodium Chloride 0.9% 1,000 ML IV SCH (17:20)
[2018-01-13] MEDS ORDERED: Dextrose 5% in Water 1,000 ML IV PRN (17:56)
[2018-01-13] MEDS ORDERED: HumaLOG 300 UNITS/3 ML VIAL SC PRN (17:56)
[2018-01-13] MEDS ORDERED: Dextrose 50% Abboject 50 ML SYRINGE SLOW IVP PRN (17:56)
--- NOTE | 2018-01-13 18:01 | PDOC.FPRHP ---
- History of Present Illness Chief Complaint: dysuria History of Present Illness: 77 yo f with pmhx of dm, type2, htn, hld presents with dysuria and fever. She went to clinic on 01/01 for a follow-up and complained at that time of dysuria. She was sent home on macrobid 100mg BID for 3 days, was then found to be growing gram negative rods on urine cx and given macrobid 100mg BID for 5 more days, of which she is still taking. She feels better but still complains of persistent dysuria. She endorese fevers and chills as well as some shortness of breath. She denies chest pain . ED Course: 2g Rocephin, 1g tylenol, 30ml/kg bolus of NS - Allergies/Adverse Reactions Allergies Allergy/AdvReac Type Severity Reaction Status Date / Time No Known Allergies Allergy Verified 06/29/17 20:12 - Home Medications Medication Instructions Recorded Confirmed Type Atorvastatin Calcium [Lipitor] 40 mg PO HS 06/29/17 01/13/18 History Cholecalciferol (Vitamin D3) 1,000 unit PO BID 06/29/17 01/13/18 History [Vitamin D3] Fenofibrate Nanocrystallized 145 mg PO HS 06/29/17 01/13/18 History [Fenofibrate] Lisinopril [Zestril] 40 mg PO HS 06/29/17 01/13/18 History Loratadine [Claritin] 10 mg PO HS 06/29/17 01/13/18 History Propranolol HCl [Propranolol HCl 80 mg PO HS 06/29/17 01/13/18 History ER] metFORMIN HCl [Metformin HCl ER] 500 mg PO HS 06/29/17 01/13/18 History Amlodipine [Norvasc] 5 mg PO DAILY #30 tab 07/02/17 01/13/18 Rx Mirtazapine 7.5 mg PO HS 01/13/18 01/13/18 History Nitrofurantoin Monohyd/M-Cryst 100 mg PO BID 01/13/18 01/13/18 History [Nitrofurantoin [place]-Mcr 100 mg] - History PMHx: HTN, HLD, DM type 2, Depression PSHx: laminectomy, hysterectomy FHx:heart disease Social: denies tobacco, alcohol, drug use - Review of Systems General: reports: fever/chills. denies: weight/appetite/sleep changes ENT: denies: nasal congestion, rhinorrhea Respiratory: reports: shortness of breath. denies: cough, congestion Cardiovascular: denies: chest pain, palpitation, edema Gastrointestinal: reports: diarrhea. denies: nausea, vomiting Genitourinary: reports: dysuria Skin: denies: lesions, jaundice Musculoskeletal: denies: pain, tenderness, stiffness Neurological: denies: numbness, syncope, seizure Psychological: denies: anxiety, depression - Vital signs BP: 169/71 HR: 89 RR: 24 Tmax: Pox:97 % on RA Wt: 49kg - Physical Exam Constitutional: awake, alert and oriented, other (thin, trembling) HEENT: normocephalic and atraumatic, no scleral icterus, grossly normal hearing , MMM Heart: RRR, normal S1/S2, no murmurs/rubs/gallops Lungs: CTAB, no respiratory distress, good air movement, no rales/rhonchi Abdomen: soft, non-tender, other (hypoactive bowel sounds; no suprapubic tenderness) Neurological: no focal deficit Skin: other (dry) Psychiatric: normal mood and affect FMR H&P: Results - Labs Result Diagrams: 01/13/18 12:09 01/13/18 12:09 Lab results: WBC 10.9 thou/uL (4.8-10.8) H 01/13/18 12:09 Hgb 13.7 g/dL (12.0-16.0) 01/13/18 12:09 Hct 39.4 % (36.0-47.0) 01/13/18 12:09 MCV 92.4 fL (78.0-98.0) 01/13/18 12:09 Plt Count 162 thou/uL (130-400) 01/13/18 12:09 Band Neuts % (Manual) 34 % (5-11) H 01/13/18 12:09 Sodium 143 mmol/L (136-145) 01/13/18 12:09 Potassium 4.0 mmol/L (3.5-5.1) 01/13/18 12:09 Chloride 108 mmol/L (98-107) H 01/13/18 12:09 Carbon Dioxide 22 mmol/L (23-31) L 01/13/18 12:09 BUN 40 mg/dL (9.8-20.1) H 01/13/18 12:09 Creatinine 1.50 mg/dL (0.6-1.1) H 01/13/18 12:09 Glucose 227 mg/dL (83-110) H 01/13/18 12:09 Lactic Acid 3.8 mmol/L (0.5-2.2) H 01/13/18 17:36 Calcium 10.5 mg/dL (7.8-10.44) H 01/13/18 12:09 Total Bilirubin 0.8 mg/dL (0.2-1.2) 01/13/18 12:09 AST 29 U/L (5-34) 01/13/18 12:09 ALT 30 U/L (8-55) 01/13/18 12:09 Alkaline Phosphatase 55 U/L (40-150) 01/13/18 12:09 CK-MB (CK-2) 0.7 ng/mL (0-6.6) 01/13/18 12:09 Serum Total Protein 8.0 g/dL (6.0-8.3) 01/13/18 12:09 Albumin 4.2 g/dL (3.4-4.8) 01/13/18 12:09 Urine Ketones Negative mg/dL (Negative) 01/13/18 12:24 Urine Blood Negative (Negative) 01/13/18 12:24 Urine Nitrite Negative (Negative) 01/13/18 12:24 Ur Leukocyte Esterase Negative (Negative) 01/13/18 12:24 - Radiology Interpretation Chest x-ray Status: image reviewed by me, report reviewed by me Additional comment: no acute cardiopulmonary findings FMR H&P: A/P - Problem List (1) Sepsis Current Visit: Yes Status: Acute Code(s): A41.9 - SEPSIS, UNSPECIFIED ORGANISM (2) Complicated UTI (urinary tract infection) Current Visit: Yes Status: Acute Code(s): N39.0 - URINARY TRACT INFECTION, SITE NOT SPECIFIED (3) CAP (community acquired pneumonia) Current Visit: Yes Status: Acute Code(s): J18.9 - PNEUMONIA, UNSPECIFIED ORGANISM (4) Diarrhea Current Visit: Yes Status: Acute Code(s): R19.7 - DIARRHEA, UNSPECIFIED (5) Depression Current Visit: No Status: Chronic Code(s): F32.9 - MAJOR DEPRESSIVE DISORDER , SINGLE EPISODE, UNSPECIFIED (6) Diabetes mellitus type 2 in nonobese Current Visit: No Status: Chronic Code(s): E11.9 - TYPE 2 DIABETES MELLITUS WITHOUT COMPLICATIONS (7) HLD (hyperlipidemia) Current Visit: No Status: Chronic Code(s): E78.5 - HYPERLIPIDEMIA, UNSPECIFIED Qualifiers: Hyperlipidemia type: unspecified Qualified Code(s): E78.5 - Hyperlipidemia , unspecified (8) HTN (hypertension) Current Visit: No Status: Chronic Code(s): I10 - ESSENTIAL (PRIMARY) HYPERTENSION Qualifiers: Hypertension type: essential hypertension Qualified Code(s): I10 - Essential (primary) hypertension - Plan 77 yo f with pmhx of diabetes, htn, hld presents with dysuria and fever, admitted for sepsis 2/2 complicated uti vs CAP vs diarrheal illness. 1.)Sepsis 2/2 complicated UTI vs CAP vs diarrheal illness- -Recent UTI treated in the clinic with macrobid 100mg BID for 5 days with persistent urinary sx -Will repeat urine cx, blood culture -Will order a renal US d/t complicated uti; however, ua was wnl -several day hx of diarrhea which could be a side effect of macrobid, but will order stool studies to rule out c. diff or other bacterial cause -there is some concern for CAP and the patient is very dry appearing on exam; will repeat a cxr in the am and provide NS @ 100ml/hr overnight -Continue Rocephin 1g q24 and start azithromicin for atypical coverage for community acquired pneumonia -Rocephin 2g was given in ER today -will add urine legionella and urine strep antigen -30ml/kg bolus given in ER -repeat cbc, bmp, cxr in am -VSS; not acutely hypoxic but will contiue to monitor vitals; however sob in room, repeat cxr in am -in regard to sob, not tachycardic, no s/s of DVT so PE less likely 2.)AARTI- -Will order urine cr and urine sodium to further assess; appears to be prerenal and fluids were started at 100 ml/hr -pt received 30ml/kg bolus in the ER 3.)DM, type 2 -Continue metformin 100mg BID 4.)HTN -Continue Lisinopril, amlodipine, propranolol -hydralazine prn sbp>180 5.)HLD- -Continue atorvastatin 6.)Depression- -Continue mirtazipine qhs Code: Full DVT: SCDs Dispo: >2 days FMR H&P: Upper Level - Plan Date/Time: 01/13/18 1801 I, [], have evaluated this patient and agree with findings/plan as outlined by fashion buying internship resident. Pertinent changes/additions are listed here.
[2018-01-13] MEDS ORDERED: Azithromycin 250 MG TAB PO SCH (19:00)
--- NOTE | 2018-01-13 19:40 | ULT ---
RENAL ULTRASOUND: INDICATIONS: Complicated urinary tract infection, refractory to medical therapy. FINDINGS: There is symmetric size of each kidney, measuring between 10 and 11 cm, as demonstrated. There is no overt hydronephrosis or suspicious renal lesion. The urinary bladder is unremarkable, as visualized . IMPRESSION: No acute renal pathology evident by sonographic evaluation. POS: RUBEN
[2018-01-13] MEDS: Acetaminophen 325 MG TAB PO PRN (20:32)
[2018-01-13] MEDS: Mirtazapine 15 MG TAB PO SCH (20:34)
[2018-01-13] MEDS: Atorvastatin Calcium 40 MG TAB PO SCH (20:34)
[2018-01-13] MEDS: Fenofibrate Nanocrystallized 145 MG TAB PO SCH (20:34)
[2018-01-13] MEDS: Loratadine 10 MG TAB PO SCH (20:34)
[2018-01-13] MEDS: Lisinopril 20 MG TAB PO SCH (20:34)
[2018-01-13 21:02] LABS: Legionella Urinary Ag Negative (Negative); Strep pneumo Urine Ag NEGATIVE (NEGATIVE)
[2018-01-13 21:42] LABS: Lactic Acid 3.2 mmol/L (0.5-2.2)
[2018-01-14] MEDS: Sodium Chloride 0.9% 1,000 ML IV SCH ×2 (03:04→13:15)
[2018-01-14] MEDS: hydrALAZINE 20 MG/ML VIAL SLOW IVP PRN (03:04)
[2018-01-14 05:35] LABS: Band 16 % (5-11); Eosinophils 2 % (0-10); Hemoglobin 11.5 g/dL (12.0-16.0); Lymphocytes 8 % (21-51); MDiff Complete? YES; Mean Corpuscular HGB CONC 34.3 g/dL (32.0-36.0); Mean Corpuscular Hemoglobin 31.8 pg (27.0-31.0); Mean Corpuscular Volume 92.8 fL (78.0-98.0); Mean Platelet Volume 7.5 fL (7.4-10.4); Monocytes 4 % (0-10); Neutrophil 70 % (42-75); PLT Morphology Comment Appears Adequate; Platelet Count 163 thou/uL (130-400); RBC Distribution Width 12.3 % (11.5-14.5); White Blood Cell (WBC) Count 11.9 thou/uL (4.8-10.8)
[2018-01-14 05:47] LABS: ALT (SGPT) 26 U/L (8-55); AST (SGOT) 29 U/L (5-34); Albumin 3.4 g/dL (3.4-4.8); Alkaline Phosphatase 37 U/L (40-150); Anion Gap 13 mmol/L (10-20); BUN (Urea Nitrogen) 24 mg/dL (9.8-20.1); Bilirubin, Total 0.6 mg/dL (0.2-1.2); Calc. Creatinine Clearance 35 mL/min (70-130); Calcium 9.2 mg/dL (7.8-10.44); Carbon Dioxide 20 mmol/L (23-31); Chloride 112 mmol/L (98-107); Estimated GFR-MDRD 50; Glucose 125 mg/dL (83-110); Potassium 3.5 mmol/L (3.5-5.1); Protein, Total 6.4 g/dL (6.0-8.3); Sodium 141 mmol/L (136-145)
[2018-01-14] MEDS ORDERED: Enoxaparin Sodium 30 MG/0.3 ML SYRINGE SC SCH (09:00)
--- NOTE | 2018-01-14 09:58 | RAD ---
FRONTAL AND LATERAL IMAGING OF THE CHEST: 01/14/2018 HISTORY: Concern for community acquired pneumonia. Fever. COMPARISON: 01/13/2018 FINDINGS: There is increased linear interstitial density noted throughout both lungs with pulmonary hyperinflat ion, suggesting COPD/emphysematous change. Atherosclerotic calcification in the aortic arch is noted . No pneumothorax, pleural fluid, focal consolidation, or alveolar edema. IMPRESSION: Increased linear interstitial density with pulmonary hyperinflation, evidence of chronic obstructive pulmonary disease in the proper clinical setting. POS: RUBEN
[2018-01-14] MEDS: Azithromycin 250 MG TAB PO SCH (10:02)
[2018-01-14] MEDS: Acetaminophen 325 MG TAB PO PRN (10:02)
[2018-01-14] MEDS: Amlodipine 5 MG TAB PO SCH (10:02)
--- NOTE | 2018-01-14 12:27 | PDOC.FM ---
Addendum entered and electronically signed by Carito Barcaly MD 01/14/18 17:17: S:Pt denies shortness of breath this morning. She also continues to endorse loose stools, but denies blood in her stool. The nurse had just collected the stool sample while in the room. PE: Gen: NAD, HEENT: NCAT CV: RRR, no m/r/g, nl s1 and s2 Resp: CTAB, no w/r/r Abd: soft, nontender to palpation, hypactive bowel sounds Skin: dry >2sec capillary refill Psych: a*ox3; euthymic mood Original Note: - Objective Vital Signs & Weight: Vital Signs (12 hours) Temp Pulse Resp BP BP Pulse Ox 01/14/18 12:00 98.2 F 94 18 162/70 H 01/14/18 10:02 87 163/74 H 01/14/18 08:00 99.7 F H 87 18 163/74 H 94 L 01/14/18 03:04 98.1 F 88 20 190/68 H 190/68 H 93 L Weight Weight 49.442 kg I&O: 01/13/18 01/14/18 01/15/18 06:59 06:59 06:59 Intake Total 1306 240 Output Total 200 Balance 1106 240 Result Diagrams: 01/14/18 04:56 01/14/18 04:56 <Carito Barclay - Last Filed: 01/14/18 12:22> - Objective Vital Signs & Weight: Vital Signs (12 hours) Temp Pulse Resp BP Pulse Ox 01/16/18 07:25 98.7 F 60 15 155/73 H 92 L 01/16/18 07:16 61 16 90 L 01/16/18 04:05 98.5 F 67 18 162/77 H 94 L 01/16/18 01:00 93 L 01/15/18 23:40 98.6 F 73 16 154/70 H 89 L Weight Admit Weight 49.442 kg Weight 51.846 kg I&O: 01/15/18 01/16/18 01/17/18 06:59 06:59 06:59 Intake Total 2414 Output Total 500 1000 Balance 1914 -1000 Result Diagrams: 01/16/18 07:47 01/16/18 07:47 <Merrill Reyes Last Filed: 01/16/18 10:09> Dx/Plan (1) Sepsis Code(s): A41.9 - SEPSIS, UNSPECIFIED ORGANISM Status: Acute (2) Complicated UTI (urinary tract infection) Code(s): N39.0 - URINARY TRACT INFECTION, SITE NOT SPECIFIED Status: Acute (3) CAP (community acquired pneumonia) Code(s): J18.9 - PNEUMONIA, UNSPECIFIED ORGANISM Status: Acute (4) Diarrhea Code(s): R19.7 - DIARRHEA, UNSPECIFIED Status: Acute (5) Depression Code(s): F32.9 - MAJOR DEPRESSIVE DISORDER, SINGLE EPISODE, UNSPECIFIED Status : Chronic (6) Diabetes mellitus type 2 in nonobese Code(s): E11.9 - TYPE 2 DIABETES MELLITUS WITHOUT COMPLICATIONS Status: Chronic (7) HLD (hyperlipidemia) Code(s): E78.5 - HYPERLIPIDEMIA, UNSPECIFIED Status: Chronic Qualifiers: Hyperlipidemia type: unspecified Qualified Code(s): E78.5 - Hyperlipidemia , unspecified (8) HTN (hypertension) Code(s): I10 - ESSENTIAL (PRIMARY) HYPERTENSION Status: Chronic Qualifiers: Hypertension type: essential hypertension Qualified Code(s): I10 - Essential (primary) hypertension - Plan Plan: - Plan 77 yo f with pmhx of diabetes, htn, hld presents with dysuria and fever, admitted for sepsis 2/2 complicated uti vs CAP vs diarrheal illness. Sepsis 2/2 c. diff infection vs CAP- - Blood cx ngtd. -c. diff positive; started on fidaxomicin 500mg BID. -repeat cxr did not show infiltrate/consolidation however diffuse rales bilaterally; cxr did show signs of COPD -Continue Rocephin 1g q24 and start azithromicin for atypical coverage for community acquired pneumonia -Will consider adding prednisone to treat as copd exacerbation -urine legionella and urine strep antigen negative -VSS; not acutely hypoxic but will contiue to monitor vitals Clostridium Difficle -started fidaxomicin -contact precautions AARTI- -FeNA 2.5% -BUN/Cr >20 -Improved with fluids DM, type 2 -Continue metformin 100mg BID HTN -Continue Lisinopril, amlodipine, propranolol -hydralazine prn sbp>180 HLD- -Continue atorvastatin Depression- -Continue mirtazipine qhs Code: Full DVT: SCDs Dispo: >2 days <Carito Barclay - Last Filed: 01/14/18 12:22> Attending Addendum - Attending Addendum Date/Time: 01/16/18 1009 I personally evaluated the patient and discussed the management with Dr. Walker on 01/14/2018. I agree with the History, Examination, Assessment and Plan documented above with any addition or exceptions noted below. <Merrill Reyes - Last Filed: 01/16/18 10:09>
[2018-01-14] MEDS: cefTRIAXone\\ROCEPHIN 1 GM in Sodium Chloride 0.9% 100 ML IVPB SCH (13:13)
[2018-01-14] MEDS: Lisinopril 20 MG TAB PO SCH (18:31)
[2018-01-14] MEDS ORDERED: Fidaxomicin 200 MG TAB PO SCH (21:00)
[2018-01-14] MEDS: Vancomycin HCl 25 MG/ML Oral PO SCH (21:26)
[2018-01-14] MEDS: Propranolol HCl LA 80 MG CAP PO SCH (21:27)
[2018-01-14] MEDS: Mirtazapine 15 MG TAB PO SCH (21:28)
[2018-01-14] MEDS: Loratadine 10 MG TAB PO SCH (21:28)
[2018-01-14] MEDS: metFORMIN XR 500 MG TAB PO SCH (21:28)
[2018-01-14] MEDS: Fenofibrate Nanocrystallized 145 MG TAB PO SCH (21:30)
[2018-01-14] MEDS: Atorvastatin Calcium 40 MG TAB PO SCH (21:58)
[2018-01-15] MEDS ORDERED: Clopidogrel Bisulfate 75 MG TAB ONE (04:01)
[2018-01-15] MEDS: Sodium Chloride 0.9% 1,000 ML IV SCH ×3 (04:41→19:15)
--- NOTE | 2018-01-15 08:19 | PDOC.FM ---
- Subjective Subjective: No complaints this morning. Denies shortness of breath. Feels well. Last diarrheal episode two days prior. - Objective MAR Reviewed: Yes Vital Signs & Weight: Vital Signs (12 hours) Temp Pulse Resp BP Pulse Ox 01/15/18 07:15 98.5 F 67 16 161/76 H 90 L 01/15/18 04:00 97.6 F 86 20 150/67 H 93 L 01/15/18 00:00 99.1 F 89 20 171/77 H 92 L 01/14/18 20:30 99.1 F 89 20 162/83 H 94 L Weight Admit Weight 49.442 kg Weight 51.846 kg I&O: 01/14/18 01/15/18 01/16/18 06:59 06:59 06:59 Intake Total 1306 2414 Output Total 200 500 Balance 1106 1914 Result Diagrams: 01/14/18 04:56 01/14/18 04:56 <Carito Barclay - Last Filed: 01/15/18 12:08> - Objective Vital Signs & Weight: Vital Signs (12 hours) Temp Pulse Resp BP Pulse Ox 01/16/18 07:25 98.7 F 60 15 155/73 H 92 L 01/16/18 07:16 61 16 90 L 01/16/18 04:05 98.5 F 67 18 162/77 H 94 L 01/16/18 01:00 93 L 01/15/18 23:40 98.6 F 73 16 154/70 H 89 L Weight Admit Weight 49.442 kg Weight 51.846 kg I&O: 01/15/18 01/16/18 01/17/18 06:59 06:59 06:59 Intake Total 2414 Output Total 500 1000 Balance 1914 -1000 Result Diagrams: 01/16/18 07:47 01/16/18 07:47 <Merrill Reyes - Last Filed: 01/16/18 10:34> Phys Exam - Physical Examination Constitutional: NAD HEENT: PERRLA, moist MMs Respiratory: no wheezing, no rales, clear to auscultation bilateral Cardiovascular: RRR, no significant murmur Gastrointestinal: soft, non-tender, no distention Musculoskeletal: no edema, pulses present Neurological: non-focal, normal sensation Psychiatric: normal affect, A&O x 3 Skin: no rash <Carito Barclay - Last Filed: 01/15/18 12:08> Dx/Plan (1) Sepsis Code(s): A41.9 - SEPSIS, UNSPECIFIED ORGANISM Status: Acute (2) Complicated UTI (urinary tract infection) Code(s): N39.0 - URINARY TRACT INFECTION, SITE NOT SPECIFIED Status: Acute (3) CAP (community acquired pneumonia) Code(s): J18.9 - PNEUMONIA, UNSPECIFIED ORGANISM Status: Acute (4) Diarrhea Code(s): R19.7 - DIARRHEA, UNSPECIFIED Status: Acute (5) Depression Code(s): F32.9 - MAJOR DEPRESSIVE DISORDER, SINGLE EPISODE, UNSPECIFIED Status : Chronic (6) Diabetes mellitus type 2 in nonobese Code(s): E11.9 - TYPE 2 DIABETES MELLITUS WITHOUT COMPLICATIONS Status: Chronic (7) HLD (hyperlipidemia) Code(s): E78.5 - HYPERLIPIDEMIA, UNSPECIFIED Status: Chronic Qualifiers: Hyperlipidemia type: unspecified Qualified Code(s): E78.5 - Hyperlipidemia , unspecified (8) HTN (hypertension) Code(s): I10 - ESSENTIAL (PRIMARY) HYPERTENSION Status: Chronic Qualifiers: Hypertension type: essential hypertension Qualified Code(s): I10 - Essential (primary) hypertension - Plan Plan: 77 yo f with pmhx of diabetes, htn, hld presents with dysuria and fever, admitted for sepsis 2/2 complicated uti vs CAP vs diarrheal illness. Sepsis 2/2 CAP- - Blood cx ngtd. -c. diff antigen positive but toxin negative. No indication for treatment at this time. -Repeat cxr did not show infiltrate/consolidation however diffuse rales bilaterally; cxr did show signs of COPD -Transition from rocephin to levaquin for a total of five days -urine legionella and urine strep antigen negative -VSS; not acutely hypoxic but will contiue to monitor vitals AARTI- -FeNA 2.5% -BUN/Cr >20 -Improved with fluids DM, type 2 -Continue metformin 100mg BID HTN -Continue Lisinopril, amlodipine, propranolol -hydralazine prn sbp>180 HLD- -Continue atorvastatin Depression- -Continue mirtazipine qhs Code: Full DVT: SCDs Dispo: ok for discharge today <Carito Barclay - Last Filed: 01/15/18 12:08> Attending Addendum - Attending Addendum Date/Time: 01/16/18 1034 I personally evaluated the patient and discussed the management with Dr. Walker on 01/15/18. I agree with the History, Examination, Assessment and Plan documented above with any addition or exceptions noted below. <Merrill Reyes - Last Filed: 01/16/18 10:34>
[2018-01-15] MEDS: Amlodipine 5 MG TAB PO SCH (09:03)
[2018-01-15] MEDS: Vancomycin HCl 25 MG/ML Oral PO SCH ×4 (09:03→20:38)
[2018-01-15] MEDS: Azithromycin 250 MG TAB PO SCH (09:03)
[2018-01-15] MEDS: cefTRIAXone\\ROCEPHIN 1 GM in Sodium Chloride 0.9% 100 ML IVPB SCH (12:23)
[2018-01-15] MEDS ORDERED: predniSONE 20 MG TAB PO SCH (16:00)
[2018-01-15] MEDS: hydrALAZINE 20 MG/ML VIAL SLOW IVP PRN (16:23)
[2018-01-15] MEDS: Mometasone/Formoterol 120 PUFF INHALER INH SCH (18:55)
[2018-01-15] MEDS: Propranolol HCl LA 80 MG CAP PO SCH (20:38)
[2018-01-15] MEDS: Lisinopril 20 MG TAB PO SCH (20:38)
[2018-01-15] MEDS: Mirtazapine 15 MG TAB PO SCH (20:39)
[2018-01-15] MEDS: Fenofibrate Nanocrystallized 145 MG TAB PO SCH (20:39)
[2018-01-15] MEDS: metFORMIN XR 500 MG TAB PO SCH (20:39)
[2018-01-15] MEDS: Atorvastatin Calcium 40 MG TAB PO SCH (20:39)
[2018-01-15] MEDS: Loratadine 10 MG TAB PO SCH (20:41)
[2018-01-16] MEDS: Sodium Chloride 0.9% 1,000 ML IV SCH (05:15)
[2018-01-16] MEDS: Mometasone/Formoterol 120 PUFF INHALER INH SCH (07:16)
--- NOTE | 2018-01-16 07:24 | PDOC.FM ---
- Subjective Subjective: No acute events overnight. Repeated walking trial and passed with o2 sat of 94% . No complaints of sob this am. Feels well. - Objective MAR Reviewed: Yes Vital Signs & Weight: Vital Signs (12 hours) Temp Pulse Resp BP BP Pulse Ox 01/16/18 07:16 61 16 90 L 01/16/18 04:05 98.5 F 67 18 162/77 H 94 L 01/16/18 01:00 93 L 01/15/18 23:40 98.6 F 73 16 154/70 H 89 L 01/15/18 20:38 163/80 H 01/15/18 20:00 98.5 F 78 18 163/80 H 94 L Weight Admit Weight 49.442 kg Weight 51.846 kg I&O: 01/15/18 01/16/18 01/17/18 06:59 06:59 06:59 Intake Total 2414 Output Total 500 1000 Balance 1914 -1000 Result Diagrams: 01/16/18 12:19 01/16/18 07:47 <Carito Barclay - Last Filed: 01/16/18 17:33> - Objective Vital Signs & Weight: Weight Admit Weight 49.442 kg Weight 51.846 kg Result Diagrams: 01/16/18 12:19 01/16/18 07:47 <Merrill Reyes - Last Filed: 01/19/18 08:23> Phys Exam - Physical Examination Constitutional: NAD HEENT: PERRLA, moist MMs Respiratory: no wheezing, no rales, no rhonchi, clear to auscultation bilateral Cardiovascular: RRR, no significant murmur Gastrointestinal: soft, non-tender Musculoskeletal: no edema, pulses present Neurological: non-focal, normal sensation Psychiatric: normal affect, A&O x 3 Skin: no rash, normal turgor, cap refill <2 seconds <Carito Barclay - Last Filed: 01/16/18 17:33> Dx/Plan (1) Sepsis Code(s): A41.9 - SEPSIS, UNSPECIFIED ORGANISM Status: Acute (2) Complicated UTI (urinary tract infection) Code(s): N39.0 - URINARY TRACT INFECTION, SITE NOT SPECIFIED Status: Acute (3) CAP (community acquired pneumonia) Code(s): J18.9 - PNEUMONIA, UNSPECIFIED ORGANISM Status: Acute (4) Diarrhea Code(s): R19.7 - DIARRHEA, UNSPECIFIED Status: Acute (5) Depression Code(s): F32.9 - MAJOR DEPRESSIVE DISORDER, SINGLE EPISODE, UNSPECIFIED Status : Chronic (6) Diabetes mellitus type 2 in nonobese Code(s): E11.9 - TYPE 2 DIABETES MELLITUS WITHOUT COMPLICATIONS Status: Chronic (7) HLD (hyperlipidemia) Code(s): E78.5 - HYPERLIPIDEMIA, UNSPECIFIED Status: Chronic Qualifiers: Hyperlipidemia type: unspecified Qualified Code(s): E78.5 - Hyperlipidemia , unspecified (8) HTN (hypertension) Code(s): I10 - ESSENTIAL (PRIMARY) HYPERTENSION Status: Chronic Qualifiers: Hypertension type: essential hypertension Qualified Code(s): I10 - Essential (primary) hypertension - Plan Plan: 77 yo f with pmhx of diabetes, htn, hld presents with dysuria and fever, admitted for sepsis 2/2 complicated uti vs CAP vs diarrheal illness. Sepsis 2/2 CAP- - Blood cx ngtd. -c. diff antigen positive but toxin negative. No indication for treatment at this time. -levaquin for a total of five days -urine legionella and urine strep antigen negative -91-92% on RA -pt failed walking trial; CM consulted to assist with home oxygen -pt passed repeat walking trial -supsect underlying COPD -started on dulera BID and prednisone for 5 days AARTI- -Improved with fluids DM, type 2 -Continue metformin 100mg BID HTN -Continue Lisinopril, amlodipine, propranolol -hydralazine prn sbp>180 HLD- -Continue atorvastatin 40mg daily Depression- -Continue mirtazipine qhs Code: Full DVT: SCDs Dispo: ok for discharge today <Carito Barclay - Last Filed: 01/16/18 17:33> Attending Addendum - Attending Addendum Date/Time: 01/19/18 0823 I personally evaluated the patient and discussed the management with Dr. Walker on 01/16/18. I agree with the History, Examination, Assessment and Plan documented above with any addition or exceptions noted below. <Merrill Reyes - Last Filed: 01/19/18 08:23>
[2018-01-16] MEDS ORDERED: predniSONE 20 MG TAB PO SCH (08:00)
[2018-01-16 08:02] LABS: #Lymphocytes 0.9 thou/uL (1.20-3.40); #Monocytes 0.2 thou/uL (0.11-0.59); #Neutrophils 3.1 thou/uL (1.40-6.50); %Basophils 0.3 % (0.0-1.0); %Eosinophils 0.1 % (0.0-10.0); %Lymphocytes 21.3 % (21.0-51.0); %Monocytes 4.9 % (0.0-10.0); %Neutrophils 73.5 % (42.0-75.0); Hemoglobin 11.4 g/dL (12.0-16.0); Mean Corpuscular HGB CONC 33.9 g/dL (32.0-36.0); Mean Corpuscular Hemoglobin 31.1 pg (27.0-31.0); Mean Corpuscular Volume 91.8 fL (78.0-98.0); Mean Platelet Volume 7.4 fL (7.4-10.4); Platelet Count 207 thou/uL (130-400); RBC Distribution Width 12.1 % (11.5-14.5); Red Blood Cell (RBC) Count 3.67 mill/uL (4.20-5.40); White Blood Cell (WBC) Count 4.2 thou/uL (4.8-10.8)
[2018-01-16 08:45] LABS: Anion Gap 15 mmol/L (10-20); BUN (Urea Nitrogen) 17 mg/dL (9.8-20.1); Calc. Creatinine Clearance 41 mL/min (70-130); Calcium 9.1 mg/dL (7.8-10.44); Carbon Dioxide 20 mmol/L (23-31); Chloride 109 mmol/L (98-107); Estimated GFR-MDRD 58; Glucose 147 mg/dL (83-110); Potassium 3.6 mmol/L (3.5-5.1); Sodium 140 mmol/L (136-145)
[2018-01-16] MEDS: Vancomycin HCl 25 MG/ML Oral PO SCH ×2 (08:49→14:31)
[2018-01-16] MEDS: Amlodipine 5 MG TAB PO SCH (08:50)
[2018-01-16 12:29] LABS: #Lymphocytes 0.9 thou/uL (1.20-3.40); #Monocytes 0.3 thou/uL (0.11-0.59); #Neutrophils 4.7 thou/uL (1.40-6.50); %Basophils 0.4 % (0.0-1.0); %Eosinophils 0.3 % (0.0-10.0); %Lymphocytes 14.9 % (21.0-51.0); %Monocytes 4.6 % (0.0-10.0); %Neutrophils 79.9 % (42.0-75.0); Hemoglobin 12.2 g/dL (12.0-16.0); Mean Corpuscular HGB CONC 34.2 g/dL (32.0-36.0); Mean Corpuscular Hemoglobin 31.5 pg (27.0-31.0); Mean Corpuscular Volume 92.1 fL (78.0-98.0); Mean Platelet Volume 7.5 fL (7.4-10.4); Platelet Count 226 thou/uL (130-400); RBC Distribution Width 12.2 % (11.5-14.5); Red Blood Cell (RBC) Count 3.87 mill/uL (4.20-5.40); White Blood Cell (WBC) Count 5.8 thou/uL (4.8-10.8)
[2018-01-16 13:59] VITALS: BP 162/78; TEMP 98.2
--- NOTE | 2018-01-17 10:58 | EKG ---
Test Reason : Blood Pressure : / mmHG Vent. Rate : 083 BPM Atrial Rate : 083 BPM P-R Int : 176 ms QRS Dur : 070 ms QT Int : 362 ms P-R-T Axes : 056 054 055 degrees QTc Int : 425 ms Normal sinus rhythm Nonspecific ST abnormality Abnormal ECG Baseline Artifact Present Confirmed by ALEKSANDR ZAMBRANO DO ([id number]), commercial production editor GALINA ROMERO ([id number] on 01/17/2018 10:58:17 AM Referred By: Confirmed By:ALEKSANDR ZAMBRANO DO
== END 2018-01-16 16:54 | disposition home health service (06) | DRG 871 ==
LOC: ERS 11:09 → 2NO 16:23
PROVIDERS: ADMIT Family Medicine; ATTEND Family Medicine
DX: A41.9 Sepsis, unspecified organism (principal); J18.9 Pneumonia, unspecified organism; N39.0 Urinary tract infection, site not specified; N17.9 Acute kidney failure, unspecified; A04.72 Enterocolitis due to Clostridium difficile, not specified as recurrent; J44.0 Chronic obstructive pulmonary disease with (acute) lower respiratory infection; F32.9 Major depressive disorder, single episode, unspecified; E11.9 Type 2 diabetes mellitus without complications; E78.5 Hyperlipidemia, unspecified; I10 Essential (primary) hypertension; Z90.710 Acquired absence of both cervix and uterus
CPT/HCPCS: 36415; 36416; 51701; 71045; 71046; 76770; 80048; 80053; 81003; 82553; 82570; 83605; 83630; 84300; 84484; 85007; 85025; 85027; 87040; 87045; 87046; 87086; 87324; 87449; 87493; 87899; 93005; 94664; 96361; 96365; A4216; A4353; G8978-GP-CJ; G8979-GP-CJ; G8980-GP-CJ; J0360; J0696; J7050; J7506

== ENCOUNTER 2018-06-26 10:46 | Outpatient (CLI) | payer MEDICARE ==
--- NOTE | 2018-06-26 14:17 | CT ---
CT OF RIGHT HIP PERFORMED WITHOUT CONTRAST ENHANCEMENT: Date: 06/26/18 HISTORY: Patient with persistent right hip pain. COMPARISON: 03/13/18 plain film examination of the right hip. FINDINGS: The visualized intrapelvic contents show some sigmoid diverticular disease without any inflammatory c hange or free fluid. The bones appear demineralized. There is an avulsive type injury involving the greater trochanter. Ma rgins of these are very well corticated, suggesting this is an older injury and not acute in nature. There are arthritic changes of the hip joint with some joint space narrowing. IMPRESSION: Old avulsive fracture of the greater trochanter. Bone is avulsed and the margins are very corticated. There are no signs of any acute injury. POS: RUBEN
== END 2018-06-26 10:47 | disposition home or self-care (01) ==
LOC: SCSCT 10:46
PROVIDERS: ATTEND Family Medicine
DX: S72.114S Nondisplaced fracture of greater trochanter of right femur, sequela (principal)

== ENCOUNTER 2018-07-24 11:42 | Emergency (ER) | payer MEDICARE ==
[2018-07-24] MEDS ORDERED: Amlodipine 5 MG TAB ONE (12:24)
== END 2018-07-24 13:53 | disposition home or self-care (01) ==
LOC: ERS 11:42
DX: I16.0 Hypertensive urgency (principal); E11.9 Type 2 diabetes mellitus without complications; I10 Essential (primary) hypertension; Z79.899 Other long term (current) drug therapy; Z79.84 Long term (current) use of oral hypoglycemic drugs
CPT/HCPCS: 93005